=== PATIENT | female | born 1990 | race Two or more races ===

== ENCOUNTER → 2019-09-10 | Outpatient (CLI) | payer OTHER | END | disposition home or self-care (01) | LOC: PRENATAL 14:30 | DX: O36.80X1 Pregnancy with inconclusive fetal viability, fetus 1 (principal); Z36.82 Encounter for antenatal screening for nuchal translucency ==

== ENCOUNTER → 2019-10-29 | Outpatient (CLI) | payer OTHER | END | disposition home or self-care (01) | LOC: PRENATAL 13:37 | DX: O35.3XX1 Maternal care for (suspected) damage to fetus from viral disease in mother, fetus 1 (principal) ==

== ENCOUNTER → 2019-11-26 | Emergency (ER) | payer OTHER | END | disposition left against medical advice (07) | LOC: ER 08:09 | DX: Z53.20 Procedure and treatment not carried out because of patient's decision for unspecified reasons (principal) ==

== ENCOUNTER 2020-02-23 14:30 | Inpatient (IN) | payer OTHER ==
[~2020-02-23] VITALS: Ht 162.6 cm; Wt 74.8 kg
[2020-03-21] MEDS ORDERED: TUMS PO (21:45)
[2020-03-21] MEDS ORDERED: PROTONIX40 MG PO (21:45)
== END 2020-03-24 13:43 | disposition home or self-care (01) | DRG 807 ==
LOC: ADM 14:30 → EDSTATUS 14:30 → LDR 03-16 14:30 → OB/GYN 03-22 04:54
PROVIDERS: ADMIT Obstetrics & Gynecology; ATTEND Obstetrics & Gynecology
PROC: 10E0XZZ Delivery of Products of Conception, External Approach (ICD-10-PCS; principal; 2020-03-22)
PROC: 0HQ9XZZ Repair Perineum Skin, External Approach (ICD-10-PCS; 2020-03-22)
PROC: 4A1HXFZ Monitoring of Products of Conception, Cardiac Rhythm, External Approach (ICD-10-PCS; 2020-03-22)
PROC: 3E033VJ Introduction of Other Hormone into Peripheral Vein, Percutaneous Approach (ICD-10-PCS; 2020-03-22)
DX: O48.0 Post-term pregnancy (principal); Z37.0 Single live birth; Z3A.40 40 weeks gestation of pregnancy; O70.0 First degree perineal laceration during delivery

== ENCOUNTER 2023-01-24 12:08 | Outpatient (CLI) | payer OTHER ==
[~2023-01-24 12:08] MED LIST: PROTONIX40 MG PO; TUMS PO
== END 2023-01-24 12:57 | disposition home or self-care (01) ==
LOC: NST 12:08
PROVIDERS: ATTEND Obstetrics & Gynecology
DX: Z34.83 Encounter for supervision of other normal pregnancy, third trimester (principal)

== ENCOUNTER 2023-03-21 13:24 | Inpatient (IN) | payer OTHER ==
[~2023-03-21] VITALS: Ht 162.6 cm; Wt 77.6 kg
[2023-04-09] MEDS ORDERED: PRENATAL TABLE1 EAC4 PO (09:00)
[2023-04-09 09:11] LABS: HEMATOCRIT 32.3 % (36.0-45.00); HEMOGLOBIN 10.9 g/dL (12.0-15.00); MEAN CELL VOLUME 77.5 fL (80.00-100.00); MEAN CORPUSCULAR HGB CONC 33.6 g/dl (32.0-36.0); PLATELET COUNT 217 K/uL (150-450); RED BLOOD COUNT 4.17 M/uL (4.00-6.00); RED CELL DISTRIBUTION WIDTH 16.2 % (11.5-14.5)
[2023-04-09 09:36] LABS: ALBUMIN 2.8 gm/dL (3.4-5.0); BILIRUBIN TOTAL 0.42 mg/dL (0.3-1.2); CALCIUM 8.5 mg/dL (8.5-10.1); CREATININE SERUM 0.64 mg/dL (0.55-1.02); GFR 107.54; GLOBULINA 3.8 G/DL (2.4-3.5); POTASSIUM 4.17 mEq/L (3.5-5.1); TOTAL PROTEIN 6.6 gm/dL (6.4-8.2)
[2023-04-09 10:15] LABS: INR 0.97; PARTIAL THROMBOPLASTIN TIME 27.3 SECONDS (22.0-34.0); PROTHROMBIN TIME 10.2 SECONDS (9.0-11.5)
[2023-04-10 06:57] LABS: HEMATOCRIT 30.1 % (36.0-45.00); HEMOGLOBIN 9.8 g/dL (12.0-15.00); MEAN CELL VOLUME 78.4 fL (80.00-100.00); MEAN CORPUSCULAR HEMOGLOBIN 25.5 pg (27.00-32.0); MEAN CORPUSCULAR HGB CONC 32.5 g/dl (32.0-36.0); PLATELET COUNT 187 K/uL (150-450); RED BLOOD COUNT 3.84 M/uL (4.00-6.00)
== END 2023-04-11 13:31 | disposition home or self-care (01) | DRG 807 ==
LOC: LDR 04-08 13:23 → OB/GYN 04-09 12:49
PROVIDERS: Obstetrics & Gynecology; ADMIT Obstetrics & Gynecology; ATTEND Obstetrics & Gynecology
PROC: 10E0XZZ Delivery of Products of Conception, External Approach (ICD-10-PCS; principal; 2023-04-09)
PROC: 0UQMXZZ Repair Vulva, External Approach (ICD-10-PCS; 2023-04-09)
PROC: 4A1HXCZ Monitoring of Products of Conception, Cardiac Rate, External Approach (ICD-10-PCS; 2023-04-09)
DX: O71.82 Other specified trauma to perineum and vulva (principal); Z37.0 Single live birth; Z3A.40 40 weeks gestation of pregnancy; Z20.822 Contact with and (suspected) exposure to COVID-19